=== PATIENT | male | born 1995 | race Hispanic/Latino ===

== ENCOUNTER 2021-02-10 18:33 | Emergency (ER) | payer OTHER ==
[~2021-02-10] VITALS: Ht 175.3 cm; Wt 86.9 kg
[2021-02-10] MEDS ORDERED: APAP325T4 PO (19:00)
[2021-02-10 23:26] VITALS: BP 112/62
[2021-02-11] MEDS ORDERED: LIDOCAINE 5% (LIDODERM) PATCH TD ONE (00:25)
[2021-02-11] MEDS ORDERED: KETOROLAC 60MG 2ML VIAL IM ONE (00:25)
[2021-02-11] MEDS ORDERED: diazePAM 10 MG TAB PO ONE (00:25)
[2021-02-11] MEDS ORDERED: HOME MED LIST COMPLETE! XX SCH (01:35)
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
[2021-02-11] MEDS ORDERED: LIDO1PAD TOP (02:52)
[2021-02-11] MEDS ORDERED: METH-1165 PO (02:52)
[2021-02-11] MEDS ORDERED: NAPR-837 PO (02:52)
[2021-02-11] MEDS ORDERED: **NOTE PATIENT COMMENT** MISC XX ONE (12:24)
== END 2021-02-11 03:02 | disposition home or self-care (01) ==
LOC: M ED 18:33
DX: S39.012A Strain of muscle, fascia and tendon of lower back, initial encounter (principal); R22.31 Localized swelling, mass and lump, right upper limb; V48.6XXA Car passenger injured in noncollision transport accident in traffic accident, initial encounter; Y92.9 Unspecified place or not applicable; Y93.9 Activity, unspecified; Y99.9 Unspecified external cause status
CPT/HCPCS: 72110; 73130; 96372; 99283; J1885

== ENCOUNTER → 2023-11-22 | Outpatient (CLI) | payer OTHER ==
[~2023-11-22] MED LIST: APAP325T4 PO; LIDO1PAD TOP; METH-1165 PO; NAPR-837 PO
[2023-11-22 17:02] LABS: HEPATITIS B SURFACE ANTIGEN NEGATIVE (NEGATIVE)
[2023-11-22 17:15] LABS: HIV 1&2 SCREEN NEGATIVE (NEGATIVE)
[2023-11-22 17:23] LABS: HEPATITIS B CORE ANTIBODY IGM NEGATIVE (NEGATIVE); HEPATITIS C VIRUS ABY INDEX < 0.02 INDEX (<0.8)
[2023-11-22 17:35] LABS: GC DNA AMPLIFICATION NEGATIVE (NEGATIVE)
== END ==
LOC: M LAB 15:33
PROVIDERS: ATTEND Nurse Practitioner Adult Health
DX: Z11.3 Encounter for screening for infections with a predominantly sexual mode of transmission (principal)